=== PATIENT | male | born 1950 | race Caucasian/White ===

== ENCOUNTER 2018-10-16 06:49 | Inpatient (IN) ==
[2018-10-16] MEDS ORDERED: NS 1,000 ML IV ONE (07:24)
[2018-10-16] MEDS ORDERED: TYLENOL PO ONE (07:24)
[2018-10-16] MEDS ORDERED: ZOSYN 3.375 GM in NS 50 ML IV ONE (07:25)
[2018-10-16] MEDS ORDERED: ZOFRAN IV ONE (07:25)
[2018-10-16] MEDS ORDERED: VANCOMYCIN 1 GM/NS 1 GM/250 ML IVPB IV ONE (07:25)
[2018-10-16] MEDS ORDERED: PEPCID IV ONE (07:26)
[2018-10-16] MEDS ORDERED: SODIUM CHLORIDE 0.9% INJ ONE (07:26)
[2018-10-16 07:54] LABS: HEMATOCRIT 36.8 % (42.0-52.0); HEMOGLOBIN 12.1 g/dL (14.0-18.0); LYMPH# 0.27 X1000 (1.2-3.4); LYMPH% 5.8 % (20.5-51.1); MCH 28.7 PG (27-31); MCHC 32.9 g/dL (33-37); MCV 87.4 FL (81-99); MONO% 8.6 % (1.7-9.3); NEUT# 3.96 X1000 (1.4-6.5); NEUT% 85.6 % (42.2-75.2); PLT 109 X1000 (130-400); RBC 4.21 XMIL (4.7-6.1); RDW 14.2 % (11.5-14.5); WBC 4.63 X1000 (4.8-10.8)
[2018-10-16 08:05] LABS: AGAP 14; ALBUMIN 3.3 g/dL (3.5-5.0); ALKALINE PHOSPHATASE 95 U/L (32-122); BUN 20 mg/dL (8-22); CALCIUM 7.8 mg/dL (8.8-10.2); CHLORIDE 103 mmol/L (98-107); COSMO 277; CREATININE 0.9 mg/dL (0.7-1.2); ESTIMATED GFR > 60; GLUCOSE 114 mg/dL (70-104); GOT 37 U/L (10-34); GPT 25 U/L (10-44); LIPASE 9 U/L (13-60); MAGNESIUM 1.5 mg/dL (1.5-2.7); POTASSIUM 3.1 mmol/L (3.5-5.1); SODIUM 137 mmol/L (136-145); TCO2 19 mmol/L (25-35); TOTAL PROTEIN 5.7 g/dL (6.3-8.3)
--- NOTE | 2018-10-16 08:19 | Diag Imaging Result Doc PS360 ---
EXAM: US ABDOMEN-COMPLETE INDICATION: abd pain, diarrhea COMPARISON: None. FINDINGS: The gallbladder appears normal with no stones, wall thickening, or pericholecystic fluid. The common bile duct is normal in diameter. Sonographic Ramachandran's sign was reported to be negative. The liver is grossly unremarkable. Portal venous flow is hepatopetal. The pancreas is obscured by bowel gas. The aorta and IVC are grossly unremarkable. The spleen is unremarkable. There is a 3.7 cm parapelvic simple cyst involving the right kidney. The left kidney is unremarkable. IMPRESSION: Essentially unremarkable abdominal ultrasound. Electronically signed by Felix Flores 10/16/2018 8:16 AM
[2018-10-16 08:20] LABS: BE -1.1 mmoll (-3.0-3.0); BLOOD TYPE ARTERIAL; HCO3-(ACT) 23.9 mmoll (20.0-26.0); METHB 1.2 % (0.0-1.5); O2(CT) 16.1 mL/dL (15.0-23.0); O2HB 92.1 % (95.0-99.0); PCO2(98.6) 32 mmHg (35-45); PO2(98.6) 70 mmHg (60-100); SAMPLE BLOOD; SAO2 95.5 % (95.0-100.0); THB 12.4 g/dL (11.5-17.4); pH(98.6) 7.45 (7.35-7.45)
[2018-10-16 08:36] LABS: MODALITY ROOM AIR
[2018-10-16 08:37] LABS: ALLEN TEST YES
--- NOTE | 2018-10-16 08:54 | EKG Report ---
Test Performed on : 10/16/2018 07:01:48 AM Test Reason : WEAKNESS Blood Pressure : / mmHG Vent. Rate : 088 BPM Atrial Rate : 088 BPM P-R Int : 120 ms QRS Dur : 092 ms QT Int : 348 ms P-R-T Axes : 059 008 063 degrees QTc Int : 421 ms Normal sinus rhythm. Nonspecific ST and T wave abnormality Abnormal ECG No previous ECGs available Unconfirmed Result
[2018-10-16 09:00] LABS: INFLUENZA A NEGATIVE (NEGATIVE); INFLUENZA B NEGATIVE (NEGATIVE)
--- NOTE | 2018-10-16 09:15 | Diag Imaging Result Doc PS360 ---
EXAM: FLAT/UPRIGHT ABD/1 VIEW CHEST HISTORY: abd pain, sepsis, ams TECHNIQUE: Flat and upright with chest, four views COMPARISON: 10/17/2015 FINDINGS: Poor inspiratory effort. No consolidation. No cardiomegaly. No free air beneath the diaphragm. No bowel obstruction. There is air throughout the small bowel and colon. No organomegaly. IMPRESSION: No acute abnormality. Electronically signed by Deven Luu 10/16/2018 9:13 AM
[2018-10-16] MEDS ORDERED: CALCIUM CHLORIDE 1 GM in NS 100 ML IV ONE (09:29)
--- NOTE | 2018-10-16 09:40 | PROVIDER DOCUMENTATION ---
This chart was entered by Giovanna King Scribe, acting as scribe for Tony Palomo MD. HPI-Fever - General Chief Complaint: Weakness Stated Complaint: Weakness Time Seen by Provider: 10/16/18 07:18 Source: patient, EMS Unable to obtain history due to:: altered Allergies/Adverse Reactions: Patient Allergies Allergy/AdvReac Type Severity Reaction Status Date / Time No Known Allergies Allergy Verified 10/15/18 13:51 Home Medications: Home Medication List Medication Instructions Recorded Confirmed Last Taken Type Aspirin [Aspirin EC] 81 mg PO DAILY 10/13/15 10/16/18 10/13/15 History Atorvastatin Calcium 80 mg PO DAILY 10/13/15 10/16/18 10/13/15 History Hydroxychloroquine Sulfate 500 mg PO BID 10/13/15 10/13/15 10/13/15 History Montelukast Sodium 10 mg PO DAILY 10/13/15 10/16/18 10/13/15 History Omeprazole 40 mg PO BID 10/13/15 10/13/15 10/12/15 History Ondansetron Odt [Zofran Odt] 4 mg SL 4XDAY PRN PRN 10/13/15 10/13/15 Unknown History Prednisone 5 mg PO DIRECTED PRN 10/13/15 10/13/15 Unknown History Sucralfate 1 gm PO TID 10/13/15 10/13/15 10/12/15 History Temazepam 30 mg PO EVERY OTHER DAY 10/13/15 10/13/15 10/11/15 History Hydrochlorothiazide 12.5 mg PO DAILY #0 10/17/15 10/13/15 10/12/15 Rx Levofloxacin [Levaquin] 500 mg PO DAILY #10 tablet 10/17/15 Unknown Rx Metronidazole [Flagyl] 500 mg PO TID #30 tablet 10/17/15 Unknown Rx Ondansetron [Zofran Liquid] 2 mg PO Q8H PRN PRN #10 bottle 10/15/18 10/16/18 Unknown Rx Amlodipine [Norvasc] 1 tab PO HS 10/16/18 10/16/18 Unknown History Clonazepam 1 tab PO DIRECTED 10/16/18 10/16/18 Unknown History Donepezil HCl 1 tab PO DAILY 10/16/18 10/16/18 Unknown History Fenoprofen Calcium 1 cap PO DIRECTED 10/16/18 10/16/18 Unknown History Levocetirizine Dihydrochloride 1 tab PO HS 10/16/18 10/16/18 Unknown History Lisinopril 40 mg PO DAILY 10/16/18 10/16/18 Unknown History Tamsulosin HCl 1 cap PO HS 10/16/18 10/16/18 Unknown History Trazodone [Desyrel] 1 tab PO DIRECTED 10/16/18 10/16/18 Unknown History - History of Present Illness-Fever Nature of Presenting Problem: 67 yom presents to the ed with c/o weakness, fever, chills and ams. pt was seen recently for n/v and came in by ems this morning. pt is a/o x2 on exam ad ill appearing Fever Severity/Quality: reports: greater than 102 F (102.7) Onset/Duration: reports: this morning Timing: reports: still present Severity: reports: moderate Context: reports: confusion Fever Therapy OTOLARYNGOLOGY SURGEON: Initiated Tylenol Cognitive Baseline: other (pt has hx of dementia) Modifying Factors: improves with: nothing Associated Symptoms: reports: fever/chills, loss of appetite, malaise, nausea, weakness, other (confusion). denies: back/neck pain, chest pain, diarrhea, headaches, vomiting Similar Symptoms Previously?: Yes Recently seen or treated by another doctor?: Yes (was seen in ed yesterday for n /v) - Glascow Coma Score Best Eye Response (Deweese): (3) open to voice Best Verbal Response (Deweese): (4) confused conversation Best Motor Response (Penny): (6) obeys commands Deweese Total: 13 Review of Systems - Adult - REVIEW OF SYSTEMS - ADULT ROS:: limited per condition Constitutional: reports: see HPI, chills, fever Eyes: denies: blurred vision, double vision Ears, Nose, Mouth & Throat: reports: no symptoms reported Cardiovascular: denies: chest pain, palpitations Respiratory: denies: cough, shortness of breath, wheezing Gastrointestinal: reports: see HPI, abdominal pain, nausea. denies: diarrhea, vomiting Genitourinary: reports: no symptoms reported Musculoskeletal: reports: see HPI, muscle weakness. denies: back pain, neck pain Integumentary: reports: no symptoms reported Neurological: reports: see HPI, other ( confusion). denies: ataxia, dizziness/ vertigo, headache/migraines, slurred speech Psychiatric: reports: no symptoms reported Endocrine: reports: no symptoms reported Hematologic/Lymphatic: reports: no symptoms reported Allergic/Immunologic: reports: no symptoms reported All Other Systems: Reviewed and Negative Past History - Adult - PAST MEDICAL HISTORY-ADULT Review of Records: reports: Old Records Reviewed, Nursing Assessment Review, Medications Reviewed, Social history reviewed & non-contributory. Major Childhood Illnesses: reports: denies history Cardiovascular: reports: HTN, hyperlipidemia Respiratory: reports: COPD Gastrointestinal: reports: denies history Genitourinary: reports: denies history Musculoskeletal: reports: denies history Neurological: reports: dementia Psychiatric: reports: denies history Endocrine/Immune: reports: denies history Other Conditions: reports: denies history - PRIOR SURGERIES/PROCEDURES Surgical/Procedure History: reports: tonsillectomy - IMMUNIZATION STATUS Childhood Immunizations: See Nurse Assessment Flu Vaccine: See Nurse Assessment - FAMILY HISTORY Family History: reviewed, not pertinent - SOCIAL HISTORY Smoking: quit greater than 1 year Substance Use: denies Living Situation: family Physical Exam-General - PHYSICAL EXAM-ADULT Initial Vital Signs Reviewed: Yes - CONSTITUTIONAL General Appearance: alert, mild distress. negative: appears well - EYES Eyes: PERRL/EOMI, pink conjunctivae - HEAD, EARS, NOSE, MOUTH & THROAT HENMT: normocephalic/atraumatic, moist mucous membranes, normal ENT inspection - NECK Neck: full range of motion, normal inspection - RESPIRATORY Respiratory: chest non-tender, decreased breath sounds. negative: crackles, rales, rhonchi - CARDIOVASCULAR Cardiovascular: normal peripheral pulses, tachycardia (102) - GASTROINTESTINAL (ABDOMEN) Abdominal Exam: normal bowel sounds, soft, tenderness (mild genralized with palpation) - LYMPHATIC Lymphatic: no adenopathy - MUSCULOSKELETAL Back Exam: normal inspection Extremity: no calf tenderness, normal capillary refill, pelvis stable - SKIN Integumentary: normal color, normal turgor, warm/dry - NEUROLOGIC Neurologic: grossly normal. negative: facial droop, focal weakness, motor weakness, sensory deficit - PSYCHIATRIC Psych/Mental Status: other (pt has dementia and is a/o x2 on exam) Progress - PLAN OF CARE/RESULTS Progress/Plan/Lab Results: Vital Signs - 8 hr 10/16/18 06:56 10/16/18 07:16 10/16/18 09:00 Temperature 102.7 F H 102.7 F H Pulse Rate 99 H 88 76 Respiratory Rate 26 H 20 18 Blood Pressure 159/75 102/53 O2 Sat by Pulse Oximetry 93 L 93 L 94 L 10/16/18 09:30 Temperature 102.4 F H Pulse Rate 76 Respiratory Rate 23 Blood Pressure 104/55 O2 Sat by Pulse Oximetry 94 L Laboratory Results - last 24 hr 10/16/18 10/16/18 10/16/18 07:20 07:20 07:20 WBC 4.63 L RBC 4.21 L Hgb 12.1 L Hct 36.8 L MCV 87.4 MCH 28.7 MCHC 32.9 L RDW Std Deviation 14.2 Plt Count 109 L MPV 13.0 H Immature Gran % (Auto) 0.0 Neut % (Auto) 85.6 H Lymph % (Auto) 5.8 L Amelia % (Auto) 8.6 Eos % (Auto) 0.0 Baso % (Auto) 0.0 Immature Gran # (Auto) 0.00 Neut # (Auto) 3.96 Lymph # (Auto) 0.27 L Amelia # (Auto) 0.40 Eos # (Auto) 0.00 Baso # (Auto) 0.00 Specimen Type Sample Site pH pCO2 pO2 HCO3 Base Excess Oxyhemoglobin ABG O2 Sat (Calculated) ABG O2 Saturation ABG Carboxyhemoglobin ABG Methemoglobin Jamir Test A-a O2 Difference Total Hemoglobin Lactate Blood Gas Modality FiO2 % Sodium 137 Potassium 3.1 L Chloride 103 Carbon Dioxide 19 L Anion Gap 14 BUN 20 Creatinine 0.9 Estimated GFR/1.73 m2 > 60 BUN/Creatinine Ratio 22 Glucose 114 H Calculated Osmolality 277 Calcium 7.8 L Magnesium 1.5 Total Bilirubin 1.20 H AST 37 H ALT 25 Alkaline Phosphatase 95 Troponin T Total Protein 5.7 L Albumin 3.3 L Globulin 2.0 Albumin/Globulin Ratio 1.0 Lipase 9 L Plasma Lactate TSH 0.09 L Influenza A (Rapid) Influenza B (Rapid) 10/16/18 10/16/18 10/16/18 07:20 07:20 07:54 WBC RBC Hgb Hct MCV MCH MCHC RDW Std Deviation Plt Count MPV Immature Gran % (Auto) Neut % (Auto) Lymph % (Auto) Amelia % (Auto) Eos % (Auto) Baso % (Auto) Immature Gran # (Auto) Neut # (Auto) Lymph # (Auto) Amelia # (Auto) Eos # (Auto) Baso # (Auto) Specimen Type ARTERIAL Sample Site R RADIAL pH 7.45 pCO2 32 L pO2 70 HCO3 23.9 Base Excess -1.1 Oxyhemoglobin 92.1 L ABG O2 Sat (Calculated) 16.1 ABG O2 Saturation 95.5 ABG Carboxyhemoglobin 2.30 ABG Methemoglobin 1.2 Jamir Test YES A-a O2 Difference 40.0 Total Hemoglobin 12.4 Lactate 0.90 Blood Gas Modality ROOM AIR FiO2 % 21.0 Sodium Potassium Chloride Carbon Dioxide Anion Gap BUN Creatinine Estimated GFR/1.73 m2 BUN/Creatinine Ratio Glucose Calculated Osmolality Calcium Magnesium Total Bilirubin AST ALT Alkaline Phosphatase Troponin T < 0.010 Total Protein Albumin Globulin Albumin/Globulin Ratio Lipase Plasma Lactate 1.1 TSH Influenza A (Rapid) Influenza B (Rapid) 10/16/18 08:10 WBC RBC Hgb Hct MCV MCH MCHC RDW Std Deviation Plt Count MPV Immature Gran % (Auto) Neut % (Auto) Lymph % (Auto) Amelia % (Auto) Eos % (Auto) Baso % (Auto) Immature Gran # (Auto) Neut # (Auto) Lymph # (Auto) Amelia # (Auto) Eos # (Auto) Baso # (Auto) Specimen Type Sample Site pH pCO2 pO2 HCO3 Base Excess Oxyhemoglobin ABG O2 Sat (Calculated) ABG O2 Saturation ABG Carboxyhemoglobin ABG Methemoglobin Jamir Test A-a O2 Difference Total Hemoglobin Lactate Blood Gas Modality FiO2 % Sodium Potassium Chloride Carbon Dioxide Anion Gap BUN Creatinine Estimated GFR/1.73 m2 BUN/Creatinine Ratio Glucose Calculated Osmolality Calcium Magnesium Total Bilirubin AST ALT Alkaline Phosphatase Troponin T Total Protein Albumin Globulin Albumin/Globulin Ratio Lipase Plasma Lactate TSH Influenza A (Rapid) NEGATIVE Influenza B (Rapid) NEGATIVE Orders Category Date Time Status Nursing- Obtain EKG once Care 10/16/18 07:21 Active Saline Loc NOW Care 10/16/18 07:21 Active FLAT/UPRIGHT ABD/1 VIEW CHEST [RAD] Stat Exams 10/16/18 07:27 Completed US ABDOMEN-COMPLETE [US] Stat Exams 10/16/18 07:25 Completed ABG [RESP] Routine Lab 10/16/18 07:54 Completed AMMONIA [CHEM] Stat Lab 10/16/18 07:43 Ordered BLOOD CULTURE [BLDCUL] Stat Lab 10/16/18 07:43 Ordered C DIFF TOXIN [STOOL] Stat Lab 10/16/18 07:22 Uncollected CBC WITH ELECTRONIC DIFF [HEME] Stat Lab 10/16/18 07:20 Completed COMPREHENSIVE METABOLIC PANEL [CHEM] Stat Lab 10/16/18 07:20 Completed FREE T3 [HH] Stat Lab 10/16/18 09:28 Uncollected FREE T4 Stat Lab 10/16/18 09:[address] Stat Lab 10/16/18 08:10 Completed LACTATE, PLASMA [CHEM] Stat Lab 10/16/18 07:20 Completed LIPASE [CHEM] Stat Lab 10/16/18 07:20 Completed MAGNESIUM [CHEM] Stat Lab 10/16/18 07:20 Completed OCCULT BLOOD SCREEN STOOL PL Stat Lab 10/16/18 07:22 Ordered TOTAL T3 [HH] Stat Lab 10/16/18 09:28 Ordered TROPONIN T Stat Lab 10/16/18 07:20 Completed TSH Stat Lab 10/16/18 07:[address] W/POSS RFLX CULT [URINALYSIS] Stat Lab 10/16/18 07:22 Uncollected URINE DRUG SCREEN PL Stat Lab 10/16/18 07:23 Uncollected 0.9% Sodium Chloride Inj [Ns] 1,000 ml Med 10/16/18 07:24 Discontinued IV 999 mls/hr Acetaminophen [Tylenol] Med 10/16/18 07:24 Discontinued 1,000 mg PO NOW ONE Calcium Chloride 1 gm Med 10/16/18 09:29 Active 0.9% Sodium Chloride Inj [Ns] 100 ml IV NOW Famotidine [Pepcid] Med 10/16/18 07:26 Discontinued 20 mg IV NOW ONE Ondansetron [Zofran] Med 10/16/18 07:25 Discontinued 4 mg IV NOW ONE Piperacillin/Tazobactam [Zosyn] 3.375 gm Med 10/16/18 07:25 Discontinued 0.9% Sodium Chloride Inj [Ns] 50 ml IV NOW Potassium Chloride 20 Meq/Swi Med 10/16/18 10:00 Active 20 meq in 100 ml IV Q4H Sodium Chloride 0.9% Med 10/16/18 07:26 Discontinued 5 - 10 ml INJ NOW ONE Vancomycin 1 gm/Ns Med 10/16/18 07:25 Discontinued 1 gm in 250 ml IV NOW EKG [EKG] Stat Ther 10/16/18 07:21 Draft Result Diagrams: 10/16/18 07:20 10/16/18 07:20 - REASSESSMENT Reassessment #1 Time Reassessed: 09:14 (family at bedside ) Status: unchanged Reassessment #2 Time Reassessed: 09:37 (patient may have sepsis, but is not severe sepsis.) Status: improving Reassessment Comment: Given IVF bolus, IV vanc/zosyn in case of sepsis - EKG 1 Time of EKG reading by physician:: 07:01 EKG Read and Signed by:: Tony Palomo EKG Interpretation (*Must complete 3 of following elements*): Abnormal Rate: 88 Rhythm: nsr [place]: normal QRS: normal [place] Interval: normal Comments: artifact present/nonspecific ST and T wave abnormality - XRAY 1 XRAY: Bilateral XRAY Study: Abdomen (EXAM: FLAT/UPRIGHT ABD/1 VIEW CHEST HISTORY: abd pain, sepsis, ams TECHNIQUE: Flat and upright with chest, four views COMPARISON: 10/17/2015 FINDINGS: Poor inspiratory effort. No consolidation. No cardiomegaly. No free air beneath the diaphragm. No bowel obstruction. There is air throughout the small bowel and colon. No organomegaly. IMPRESSION: No acute abnormality. Electronically signed by Deven Luu 10/16/2018 9:13 AM 10/16/18 0913 Interpreting Physician: Deven Luu MD Dictated Date/ Time: 10/16/1812 cc: Tony Palomo MD; None,PCP) - ULTRASOUND (By Radiology) 1 US Study: Abdomen (EXAM: US ABDOMEN-COMPLETE INDICATION: abd pain, diarrhea COMPARISON: None. FINDINGS: The gallbladder appears normal with no stones, wall thickening, or pericholecystic fluid. The common bile duct is normal in diameter. Sonographic Ramachandran's sign was reported to be negative. The liver is grossly unremarkable. Portal venous flow is hepatopetal. The pancreas is obscured by bowel gas. The aorta and IVC are grossly unremarkable. The spleen is unremarkable. There is a 3.7 cm parapelvic simple cyst involving the right kidney. The left kidney is unremarkable. IMPRESSION: Essentially unremarkable abdominal ultrasound. Electronically signed by Felix Flores 2018 8:16 AM 10/16/18 0816 Interpreting Physician: Felix Flores MD Dictated Date/Time: 10/16/18 0814 cc: Tony Palomo MD; None,PCP) - CONSULTS/PCP/HOSPITALIST Notification #1 *Consult/PCP/Hospitalist*: Todd Time Discussed: 09:37 Consult Disposition: Will see in ED, Admit Procedures - ADDITIONAL PROCEDURES Additional Procedure: OTHER (ABG Interpretation: ph 7/45, PCO2 32, PO2 70, Bicarb 23.2, BE -1.1. Normal pH with low CO2, likely a result of hyperventilation.) Departure - Departure Date of Disposition Decision: 10/16/18 Time of Disposition Decision: 09:38 DIAGNOSIS: Hyperthyroidism, Hypocalcemia syndrome, Hypokalemia, Pancytopenia, Nausea vomiting and diarrhea Altered mental status, unspecified Qualifiers: Altered mental status type: disorientation Qualified Code(s): R41.0 - Disorientation, unspecified Sepsis Qualifiers: Sepsis type: sepsis due to unspecified organism Qualified Code(s): A41.9 - Sepsis, unspecified organism Disposition: ADMITTED INPATIENT 09 Certified Medical Emergency: Emergent Condition: Fair Referrals and Follow-Ups: None,PCP [Primary Care Provider] - - Critical Care Note This patient required my direct & personal management of CC.: Yes Total Time (mins): 40 Critical Care Statement: This patient required my direct personal management to treat or rule out processes, the absence of which, could potentiallly result in sudden, clinically significant life or limb threatening deterioration. Attestation - Physician/ PATO Attestation Patient care was provided by Advanced Practice Provider:: No The physician spent face to face time with patient:: Yes Advanced Practice Provider documentation review:: Supervising physician onsite and consulted in the evaluation and care of this patient. The physician did have a face to face encounter with the patient. This chart was documented by the indicated scribe, (Giovanna King Scribe) and accurately reflects the services I performed and decisions made by me, Tony Palomo MD, as attested by the provider's signature.
[2018-10-16 10:55] LABS: BILIRUBIN URINE NEGATIVE (NEGATIVE); BLOOD URINE 4+ (NEGATIVE); CLARITY CLEAR (CLEAR); COLOR YELLOW; GLUCOSE URINE NEGATIVE (NEGATIVE); KETONE URINE 1+(Small) mg/dL (NEGATIVE); LEUKOCYTES URINE NEGATIVE (NEGATIVE); NITRITE URINE NEGATIVE (NEGATIVE); PH URINE 6.5; PROTEIN URINE 1+(30 mg/dL) mg/dL (NEGATIVE); SP GRAVITY URINE 1.015; UROBILINOGEN URINE NORMAL
[2018-10-16 11:00] LABS: URINE EPITHELIAL CELLS <10 /HPF (<10); URINE SOURCE CATH
[2018-10-16 11:10] LABS: UR AMPHETAMINES QUAL NONE DETECTED (NONE DETECT); UR BARBITUATES QUAL NONE DETECTED (NONE DETECT); UR BENZODIAZEPIN QUAL NONE DETECTED (NONE DETECT); UR CANNABINOIDS QUAL NONE DETECTED (NONE DETECT); UR COCAINE QUAL NONE DETECTED (NONE DETECT); UR METHADONE QUAL NONE DETECTED (NONE DETECT); UR METHAMPHETAMINE QUAL NONE DETECTED (NONE DETECT); UR OPIATES QUAL NONE DETECTED (NONE DETECT); UR OXYCODONE QUAL NONE DETECTED (NONE DETECT); UR PCP QUAL NONE DETECTED (NONE DETECT); UR PROPOXYPHENE QUAL NONE DETECTED (NONE DETECT); UR TCA QUAL NONE DETECTED (NONE DETECT)
[2018-10-16] MEDS: POTASSIUM CHLORIDE 20 MEQ/SWI 20 MEQ/100 ML IVPB IV SCH ×2 (11:12→17:51)
[2018-10-16] MEDS ORDERED: MOTRIN PO PRN (14:14)
[2018-10-16] MEDS ORDERED: TYLENOL PO PRN (14:34)
[2018-10-16] MEDS: CARAFATE PO SCH ×2 (18:01→20:37)
[2018-10-16] MEDS: PREDNISONE PO SCH (18:01)
[2018-10-16 18:45] LABS: OCCULT BLOOD 1 POSITIVE (NEGATIVE)
[2018-10-16] MEDS: PROTONIX IV SCH (20:37)
--- NOTE | 2018-10-17 00:20 | HISTORY AND PHYSICAL ---
CHIEF COMPLAINT: Weakness, fever, chills. HISTORY OF PRESENT ILLNESS: This is a 67-year-old gentleman with a history of Still's disease, hypertension, hyperlipidemia, as well as Lewy body dementia. He presents to the emergency room with his and son complaining of a fever of 102.7, inability to walk, increased confusion. The patient was evaluated at [facility] 24 hours prior with a workup for nausea, vomiting, and diarrhea. He was discharged with instructions to take Zofran for nausea, ibuprofen every 6 hours for the aching and cramping, and Imodium for diarrhea. Today, the family noticed that he was much weaker. He was complaining of chills and he was more altered than normal. Therefore, prompting their return to the ER. He does not complain of any specific pain other than saying, "I just feel bad all over." But when questioned, he stated that his throat hurt and it may have been hurting for a few days. The states that usually he stays right next to her following her from room to room, but in the last 5 to 7 days he has been very standoffish with all of his family members. Abdominal x-ray revealed no acute abnormality. Ultrasound of the abdomen revealed an essentially unremarkable abdominal ultrasound. He is being admitted for further evaluation and treatment. PAST MEDICAL HISTORY: Hypertension, hyperlipidemia, and Still's disease as well as Lewy body dementia. PAST SURGICAL HISTORY: Tonsillectomy. SOCIAL HISTORY: No alcohol, tobacco, or illicit drug use. He does live with his . He has a son that is very active in his care. ALLERGIES: Thorazine and Haldol that are not to be taken secondary to his Still's disease. HOME MEDICATIONS: A list will be obtained by the nursing staff and will be restarted as is appropriate. REVIEW OF SYSTEMS: Really unable to obtain from the patient due to his dementia, but the pertinent positives stated from the family are listed in the HPI. PHYSICAL EXAMINATION: GENERAL: This is a 67-year-old gentleman who is lying on the stretcher in the emergency room in no distress. VITAL SIGNS: Blood pressure is 104/55 with a heart rate of 76, respirations 20, temperature is 102.4 degrees with room air saturations of 94%. EYES: Pupils are equal, round, react to light. EOMs are intact. Sclerae are anicteric. HENT: Head is normocephalic, atraumatic. Mucous membranes are moist. NECK: Supple with trachea midline. CARDIOVASCULAR: Regular rate and rhythm. S1 and S2 are appreciated. He has no lower extremity edema. PULMONARY: Breath sounds are clear with no increased work of breathing noted. GASTROINTESTINAL: Abdomen is soft, nontender, nondistended with bowel sounds in all 4 quadrants. SKIN: Warm and dry. He has no rashes nor lesions. NEUROLOGIC: He is alert. He knows his and his son. LABS: WBC is 4.6 with a hemoglobin of 12.1, hematocrit 36.8, platelets of 109,000. Sodium is 137, potassium 3.1, BUN 20, creatinine 0.9 with a glucose of 114, calcium is 7.8, total bilirubin is 1.2 with AST of 37. CRP is 141.7 and TSH is 0.09. Stool for occult blood is positive. Urine drug screen reveals none detected. Blood alcohol none detected. Influenza A/B and strep are negative. Abdominal x-ray and abdominal ultrasound are essentially negative. ASSESSMENT AND PLAN: 1. Nausea, vomiting, and diarrhea. 2. Still's disease. The patient's labs for Still's disease have been obtained and are as stated above. The patient has no salmon-colored rash nor does he have any specific joint aches or pains. We will check a triglyceride and we will call Dr. Vela for his advice. 3. Hypocalcemia. This was repleted in the emergency room. We will trend labs. 4. Hypokalemia. This was repleted in the emergency room. We will trend labs. 5. Pancytopenia, aware. 6. Hyperthyroidism. We will get a T3 and a total and T4. 7. Hypertension. We will identify his home medications and continue these as appropriate. 8. Hyperlipidemia, aware. 9. Guaiac-positive stool. The and son state that they have seen no black or tarry nor red stools. We will monitor his hemoglobin and hematocrit. Give Protonix IV b.i.d. as well as Carafate. Further treatments pending hospital course. Dictated by LUISA Lr for Junior Brooks MD This chart was documented by, LUISA Lr and accurately reflects the services performed, treatment plan and medical decisions as attested by the providers signature Junior Brooks MD. cc: LUISA Lr MD
--- NOTE | 2018-10-17 00:21 | HISTORY AND PHYSICAL ---
ADDENDUM: I did speak with Dr. Vela. We reviewed the patient's labs and symptoms. In light of his pancytopenia mildly as well as his elevated CRP, fever and symptoms, he recommended that we start prednisone 30 mg daily and continue this even after discharge. We did discuss his TSH. He recommends that we complete the thyroid panel and then he will follow this up on an outpatient basis. I have instructed the that they are to call him Friday for an appointment. Dictated by LUISA Lr for Junior Brooks MD This chart was documented by, LUISA Lr and accurately reflects the services performed, treatment plan and medical decisions as attested by the providers signature Junior Brooks MD. cc: LUISA Lr MD
[2018-10-17] MEDS ORDERED: HALDOL IV ONE (02:22)
--- NOTE | 2018-10-17 03:05 | HISTORY AND PHYSICAL ---
ADDENDUM: Patient seen and examined by myself. Full note dictated and discussed with nurse practitioner. Patient has a known history of Lewy body dementia as well as Still's disease. Presented the hospital with fever of 102 and altered mental status. We will admit to the hospital, place him on antibiotics, steroids, and continue his home medications, follow cultures. cc: Junior Brooks MD
[2018-10-17] MEDS: BENADRYL IV PRN ×3 (03:35→18:13)
[2018-10-17 05:52] LABS: HEMATOCRIT 37.7 % (42.0-52.0); HEMOGLOBIN 12.2 g/dL (14.0-18.0); LYMPH# 0.33 X1000 (1.2-3.4); LYMPH% 8.7 % (20.5-51.1); MCH 28.1 PG (27-31); MCHC 32.4 g/dL (33-37); MCV 86.9 FL (81-99); MONO# 0.28 X1000 (0.11-0.59); MONO% 7.4 % (1.7-9.3); MPV 11.8 FL (7.4-10.4); NEUT# 3.18 X1000 (1.4-6.5); NEUT% 83.9 % (42.2-75.2); PLT 102 X1000 (130-400); RBC 4.34 XMIL (4.7-6.1); RDW 13.6 % (11.5-14.5); WBC 3.79 X1000 (4.8-10.8)
[2018-10-17 06:28] LABS: AGAP 11; ALBUMIN 3.2 g/dL (3.5-5.0); ALKALINE PHOSPHATASE 80 U/L (32-122); BUN 16 mg/dL (8-22); CALCIUM 8.4 mg/dL (8.8-10.2); CHLORIDE 106 mmol/L (98-107); COSMO 280; CREATININE 0.8 mg/dL (0.7-1.2); ESTIMATED GFR > 60; GLUCOSE 124 mg/dL (70-104); GOT 60 U/L (10-34); GPT 36 U/L (10-44); POTASSIUM 3.6 mmol/L (3.5-5.1); SODIUM 139 mmol/L (136-145); TCO2 22 mmol/L (25-35); TOTAL PROTEIN 6.1 g/dL (6.3-8.3)
[2018-10-17] MEDS: CARAFATE PO SCH ×4 (08:07→21:06)
[2018-10-17] MEDS: PREDNISONE PO SCH (08:07)
[2018-10-17] MEDS: PROTONIX IV SCH ×3 (08:07→19:33)
[2018-10-17] MEDS: SODIUM CHLORIDE 0.9% INJ SCH ×2 (08:07→18:13)
[2018-10-17] MEDS: ATIVAN IV PRN (22:04)
--- NOTE | 2018-10-17 23:40 | PROGRESS NOTE ---
DATE: 10/17/2018 SUBJECTIVE: Patient notes that he is feeling a little bit better. His notes that he was very confused, disoriented and somewhat combative last night although that is improving today. PHYSICAL EXAMINATION: Vital Signs: T-max 102.7 degrees approximately 18 hours ago, T current 98.5 degrees, pulse 60, respiratory 20, BP 138/95. General: Patient is awake, currently in no respiratory distress. He is calm, pleasant. HEENT: Normocephalic. Neck: Supple. Cardiovascular: Regular rate. Chest: Clear. Abdomen: Soft. Extremities: Moves all extremities. ASSESSMENT: 1. Still's disease, seems to be improving. His C-reactive protein is declining. 2. Nausea, vomiting, diarrhea, improved. 3. Hypocalcemia. 4. Hypokalemia. 5. Pancytopenia. 6. Hypothyroidism. We will continue to follow. His TSH is quite low, but his free T4 is currently normal. cc: Junior rBooks MD
[2018-10-18 07:23] LABS: HEMATOCRIT 34.1 % (42.0-52.0); HEMOGLOBIN 11.2 g/dL (14.0-18.0); MCH 27.7 PG (27-31); MCHC 32.8 g/dL (33-37); MCV 84.4 FL (81-99); MPV 12.9 FL (7.4-10.4); RBC 4.04 XMIL (4.7-6.1); WBC 5.26 X1000 (4.8-10.8)
[2018-10-18 07:33] LABS: AGAP 10; ALBUMIN 2.9 g/dL (3.5-5.0); ALKALINE PHOSPHATASE 65 U/L (32-122); BUN 17 mg/dL (8-22); CALCIUM 8.2 mg/dL (8.8-10.2); CHLORIDE 103 mmol/L (98-107); COSMO 279; CREATININE 0.7 mg/dL (0.7-1.2); ESTIMATED GFR > 60; GLUCOSE 105 mg/dL (70-104); GOT 59 U/L (10-34); GPT 43 U/L (10-44); POTASSIUM 3.2 mmol/L (3.5-5.1); SODIUM 139 mmol/L (136-145); TCO2 26 mmol/L (25-35); TOTAL PROTEIN 5.7 g/dL (6.3-8.3)
[2018-10-18] MEDS: PREDNISONE PO SCH (08:59)
[2018-10-18] MEDS: CARAFATE PO SCH ×4 (08:59→20:03)
[2018-10-18] MEDS: SODIUM CHLORIDE 0.9% INJ SCH ×3 (09:00→18:51)
[2018-10-18] MEDS: PROTONIX IV SCH ×3 (09:00→18:51)
[2018-10-18] MEDS ORDERED: KLOR-CON PO ONE (09:10)
[2018-10-18] MEDS: ATIVAN IV PRN ×2 (12:29→19:46)
--- NOTE | 2018-10-18 16:56 | PROGRESS NOTE ---
DATE: 10/18/2018 SUBJECTIVE: Patient is much more calm this morning, did have an eventful night although that was easily resolved with Ativan. His notes that he has improved. She denies any current complaints other than that he is still very weak and fatigued. PHYSICAL: Temperature 97.8 degrees, pulse 59, respiratory 18, BP 152/80.General: Patient is awake, alert, he is in no distress. HEENT: Normocephalic. Neck: Supple. CV: Regular rate. Chest: Clear. Abdomen: Soft. Extremities: Moves all extremities although generalized weakness. ASSESSMENT: 1. Still's disease. 2. Lewy body dementia. 3. Hypocalcemia. 4. Hypokalemia. 5. Hyperthyroidism, will continue to follow. 6. Hypertension. PLAN: Will continue to follow. Most likely he is going to need rehab as he is still very weak and fatigued, his Still's disease seems to be improving, will continue oral steroids, will hold off on antibiotics as he has been afebrile for the past 36 hours and the fever certainly could be from the Still's disease. We have discussed this with his associate doctor Dr. Vela and will continue to follow. cc: Junior Brooks MD
--- NOTE | 2018-10-19 03:53 | DISCHARGE SUMMARY ---
ADMISSION DATE: 10/16/2018 DISCHARGE DATE: 10/18/2018 DIAGNOSES: 1. Still's disease. 2. Nausea, vomiting, diarrhea, improved. 3. Hypocalcemia. 4. Hypokalemia. 5. Pancytopenia. 6. Abnormal thyroid test with a TSH 0.09, free T4 of 1.2, free T3 1.8 and a total T3 0.6. DIAGNOSTICS: 1. Abdominal ultrasound revealed essentially unremarkable abdominal ultrasound. 2. Abdominal x-ray revealed no acute abnormality. MICROBIOLOGY: 1. Blood cultures x2 revealed no growth after 48 hours. 2. Throat culture revealed no strep isolated. 3. Flu A and B were both negative. HOSPITAL COURSE: Mr. Cardoso presented to the emergency room complaining of weakness, fever and chills. He did have a fever of 102.7 on arrival to the emergency room. Abdominal scans were negative. As the patient has Still's disease, we did check triglycerides as well as CRP. Although the patient did not have a salmon-colored rash, he was pancytopenic with elevated CRP. I did call Dr. Vela, his physician. We discussed the test and labs and he recommended that the patient be treated for Still's disease giving him prednisone 30 mg daily with no other treatment. We trended serial labs as well as CRP. CRP did decline and his other labs were improving. Of note, he never developed a salmon-colored rash. The patient does have a history of Lewy body dementia and on the 2nd day he did become a little more confused. He is very stoic although the family could notice the confusion. We did remind them that the patient will have confusion with dementia with setting changes. Also, the steroids were added. Today, he has had less confusion. We did trend electrolytes and replete as is appropriate. He has remained afebrile for almost 24 hours and thankfully is ready for discharge. DISCHARGE PHYSICAL EXAMINATION: Cardiovascular: Regular rate and rhythm. S1 and S2 appreciated. He has no lower extremity edema. Peripheral pulses are palpable x4 extremities. Pulmonary: Breath sounds are clear with no increased work of breathing noted. Gastrointestinal: Abdomen is soft, nontender, nondistended with bowel sounds in all 4 quadrants. Skin: Warm and dry. He has no rash or lesions noted. Discharge vital signs: Blood pressure is 152/80 with a heart rate of 59, respirations are 20, temperature is 97.8 degrees axillary with room air saturations 96- 97%. FOLLOWUP: They need to call Dr. Vela' office in the morning to schedule an appointment. DISCHARGE MEDICATIONS: 1. Tamsulosin 0.4 mg at bedtime. 2. Omeprazole 40 mg daily. 3. Lisinopril 40 mg daily. 4. Klonopin 1 mg at bedtime. 5. Donepezil 1 tablet at bedtime. 6. Atorvastatin 80 mg at bedtime. 7. Enteric-coated aspirin 81 mg daily. 8. Norvasc 10 mg daily. 9. Prednisone 30 mg p.o. daily. Further prednisone dosing will be per Dr. Vela. DISPOSITION: He is being discharged home in stable condition with family members. TIME SPENT: This is a greater than 30 minute discharge. Dictated by LUISA Lr for Junior Brooks MD This chart was documented by, LUISA rL and accurately reflects the services performed, treatment plan and medical decisions as attested by the providers signature Junior Brooks MD. cc: LUISA Lr MD Vijayanarayana R. Jampala, MD Micah A. Howard, MD
[2018-10-19] MEDS: PREDNISONE PO SCH (07:59)
[2018-10-19] MEDS: PROTONIX IV SCH (07:59)
[2018-10-19] MEDS: CARAFATE PO SCH ×4 (07:59→22:22)
[2018-10-19] MEDS: SODIUM CHLORIDE 0.9% INJ SCH (07:59)
--- NOTE | 2018-10-19 15:46 | PROGRESS NOTE ---
DATE: 10/19/2018 SUBJECTIVE: The patient has no focal complaints. He is kind of sitting up in bed quietly. OBJECTIVE: Vital Signs: Blood pressure is 140/90, heart rate of 55, respiratory rate 20, temperature 98.1 degrees, 99% on room air. Cardiovascular: Regular rate and rhythm. Pulmonary: Bilateral breath sounds clear to auscultation. Gastrointestinal: Soft, nontender, nondistended. Bowel sounds are positive. LABORATORY DATA: White count is 5, hemoglobin and hematocrit 11 and 34, platelets 120,000. Potassium 3.2, otherwise negative. PROBLEM LIST: 1. Still's disease with exacerbation. He is on a brief course of steroids. There is documentation about talking to Dr. Vela, but we are not sure what his steroid taper will be. Anyway, now we are looking at rehab options for him. 2. Lewy body dementia, appears to be stable. Will continue to follow. 3. Hypokalemia. We will supplement and follow. DISPOSITION: Anticipate discharge soon when rehab bed is available. Will continue to follow. 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 cc: Luis F Anderson MD
[2018-10-19] MEDS: ATIVAN IV PRN (15:48)
[2018-10-19] MEDS ORDERED: PROTONIX PO SCH (21:00)
[2018-10-19] MEDS: FLOMAX PO SCH (22:32)
[2018-10-19] MEDS: LIPITOR PO SCH (22:32)
[2018-10-19] MEDS: ZYRTEC PO SCH (22:33)
[2018-10-19] MEDS: KLONOPIN PO SCH (22:33)
[2018-10-19] MEDS: DESYREL PO SCH (22:35)
[2018-10-20] MEDS: PRILOSEC PO SCH (06:48)
[2018-10-20] MEDS: CARAFATE PO SCH ×4 (06:50→20:44)
[2018-10-20 06:58] LABS: BASO# 0.02 X1000 (0.0-0.2); BASO% 0.4 % (0.0-0.8); EOS# 0.02 X1000 (0.0-0.7); EOS% 0.4 % (0.0-10.0); HEMATOCRIT 33.2 % (42.0-52.0); HEMOGLOBIN 11.2 g/dL (14.0-18.0); IMM GRAN# 0.04 X1000 (0.0-0.04); IMM GRAN% 0.8 % (0.0-0.5); LYMPH# 1.47 X1000 (1.2-3.4); LYMPH% 28.4 % (20.5-51.1); MCH 28.4 PG (27-31); MCHC 33.7 g/dL (33-37); MCV 84.3 FL (81-99); MONO# 0.96 X1000 (0.11-0.59); MONO% 18.5 % (1.7-9.3); MPV 12.4 FL (7.4-10.4); NEUT# 2.67 X1000 (1.4-6.5); NEUT% 51.5 % (42.2-75.2); PLT 155 X1000 (130-400); RBC 3.94 XMIL (4.7-6.1); RDW 12.9 % (11.5-14.5); WBC 5.18 X1000 (4.8-10.8)
[2018-10-20 07:04] LABS: AGAP 9; BUN 19 mg/dL (8-22); CALCIUM 8.3 mg/dL (8.8-10.2); CHLORIDE 103 mmol/L (98-107); COSMO 286; CREATININE 0.7 mg/dL (0.7-1.2); ESTIMATED GFR > 60; GLUCOSE 103 mg/dL (70-104); POTASSIUM 3.1 mmol/L (3.5-5.1); SODIUM 142 mmol/L (136-145); TCO2 30 mmol/L (25-35)
[2018-10-20 07:56] LABS: ANISOCYTOSIS 1+; BANDS 1 % (0-1); LYMPHS 30 % (21-51); MONO 15 % (1-9); SEGS 54 % (42-75)
[2018-10-20] MEDS: PREDNISONE PO SCH (09:56)
[2018-10-20] MEDS: PRINIVIL PO SCH (09:56)
[2018-10-20] MEDS: ASPIRIN EC PO SCH (09:56)
[2018-10-20] MEDS: ARICEPT PO SCH (09:56)
[2018-10-20] MEDS: SINGULAIR PO SCH (09:56)
[2018-10-20] MEDS: NORVASC PO SCH (09:57)
[2018-10-20] MEDS: KLOR-CON PO SCH (17:08)
--- NOTE | 2018-10-20 19:42 | PROGRESS NOTE ---
DATE: 10/20/2018 SUBJECTIVE: Patient is doing okay. The son expressed concern because he is having kind of psychosis issues and they are concerned that may be related to the steroids. Like he is having strong visual hallucinations which he had not had any issues with before. PHYSICAL EXAMINATION: Vital Signs: Blood pressure is 104/55, heart rate 51, respiratory rate 18, temperature 97.7. Cardiovascular: Regular rate and rhythm. Pulmonary: Bilateral breath sounds. Clear to auscultation. Gastrointestinal: Soft, nontender, nondistended. Bowel sounds are positive. LABORATORY DATA: White count 5, hemoglobin and hematocrit 11 and 33, platelets 155,000. Potassium 3.1. Otherwise, negative. PROBLEM LIST: 1. Still's disease with exacerbation. He is on [address] Vela recommended continuing that while he is at the facility. The only concern now is just confusion possibly related to his steroids. I am going to give him a little bit of Zyprexa at night, see if it may help with some of the confusion and we may want to consider a more rapid dropping to see if that may help. 2. Hypokalemia. We will supplement and follow. 3. Generalized weakness, likely related to Still's disease exacerbation. Will continue PT and we are planning on rehab. 4. Disposition: Pending clinical status. Anticipate discharge soon to rehab, hopefully in the next 24 hours. cc: Luis F Anderson MD
[2018-10-20] MEDS: KLONOPIN PO SCH (20:37)
[2018-10-20] MEDS: LIPITOR PO SCH (20:38)
[2018-10-20] MEDS: ZYPREXA ZYDIS PO PRN (20:38)
[2018-10-20] MEDS: DESYREL PO SCH (20:38)
[2018-10-20] MEDS: FLOMAX PO SCH (20:38)
[2018-10-20] MEDS: ZYRTEC PO SCH (20:38)
[2018-10-21] MEDS: CARAFATE PO SCH ×4 (06:55→21:06)
[2018-10-21] MEDS: PRILOSEC PO SCH (06:55)
[2018-10-21 08:03] LABS: AGAP 9; BUN 19 mg/dL (8-22); CALCIUM 8.4 mg/dL (8.8-10.2); CHLORIDE 105 mmol/L (98-107); COSMO 285; CREATININE 0.6 mg/dL (0.7-1.2); ESTIMATED GFR > 60; GLUCOSE 92 mg/dL (70-104); POTASSIUM 3.6 mmol/L (3.5-5.1); SODIUM 142 mmol/L (136-145); TCO2 28 mmol/L (25-35)
[2018-10-21] MEDS: SINGULAIR PO SCH (10:41)
[2018-10-21] MEDS: NORVASC PO SCH (10:41)
[2018-10-21] MEDS: ARICEPT PO SCH (10:41)
[2018-10-21] MEDS: PRINIVIL PO SCH (10:41)
[2018-10-21] MEDS: PREDNISONE PO SCH (10:41)
[2018-10-21] MEDS: KLOR-CON PO SCH (10:41)
[2018-10-21] MEDS: ASPIRIN EC PO SCH (10:41)
--- NOTE | 2018-10-21 13:45 | PROGRESS NOTE ---
DATE: 10/21/2018 SUBJECTIVE: Patient has no major complaints. He is sitting up in bed. I cannot appreciate he has had any confusion issues, but he is apparently doing okay. SUBJECTIVE: No major issues overnight. OBJECTIVE: Blood pressure 125/70, heart rate 53, respiratory rate 21, temperature 97.6 degrees, 100% on room air.Cardiovascular: Regular rate and rhythm. Pulmonary: Bilateral breath sounds. Clear to auscultation. GI: Soft, nontender, nondistended. Bowel sounds are positive. Basic was normal. PROBLEM LIST: 1. Still's disease. He is on 20 of prednisone. We will continue that per Dr. Vela's through rehabilitation and follow closely. 2. Hypokalemia; that is resolved. 3. Weakness. We will continue physical therapy and rehabilitation. 4. Hallucinations may be related to prednisone. We discussed that we would have to continue that for the time being. DISPOSITION: Waiting for rehab swing bed to open up at [facility], and we will continue to follow. cc: Luis F Anderson MD
[2018-10-21] MEDS: LIPITOR PO SCH (21:06)
[2018-10-21] MEDS: KLONOPIN PO SCH (21:07)
[2018-10-21] MEDS: FLOMAX PO SCH (21:07)
[2018-10-21] MEDS: ZYPREXA ZYDIS PO PRN (21:07)
[2018-10-21] MEDS: ZYRTEC PO SCH (21:07)
[2018-10-21] MEDS: DESYREL PO SCH (21:07)
[2018-10-22] MEDS: PRILOSEC PO SCH (06:28)
[2018-10-22] MEDS: CARAFATE PO SCH ×4 (06:30→21:21)
--- NOTE | 2018-10-22 11:07 | PROGRESS NOTE ---
DATE: 10/22/2018 SUBJECTIVE: The patient is lying comfortably in bed. He is complaining only of generalized weakness but no other issues. OBJECTIVE: Vital Signs: Temperature 97.9 degrees, pulse 80, respiratory rate 18, blood pressure 123/62, oxygen saturation 94% on room air. HEENT: Head normocephalic. No trauma. PERRLA. Neck: Supple. No JVD. No masses. Central trachea. Chest: Clear to auscultation. No wheezing. No rales. Abdomen: Soft, nontender, nondistended. No hepatosplenomegaly. Extremities: No edema. No clubbing. No cyanosis. Neurological Examination: The patient is alert and oriented x3. Generalized weakness. Laboratory: Sodium 142, potassium 3.6, chloride 105, bicarbonate 28, BUN 19, creatinine 0.6, glucose 92, calcium 8.4. ASSESSMENT AND PLAN: 1. Still's disease. Continue with prednisone. Dr. Vela is his student development coordinator. We will continue the treatment for now. The plan is to send this patient to rehab. 2. Hypokalemia, resolved. 3. Weakness. We will continue physical therapy and pending rehabilitation. 4. This patient has been having hallucination on and off, likely secondary to the steroids but as per the patient, he did not have any kind of hallucination during the night or today. 5. Disposition. Waiting for a rehab bed. cc: Dio Mcmahon MD
[2018-10-22] MEDS: ARICEPT PO SCH (11:35)
[2018-10-22] MEDS: PRINIVIL PO SCH (11:35)
[2018-10-22] MEDS: PREDNISONE PO SCH (11:36)
[2018-10-22] MEDS: SINGULAIR PO SCH (11:36)
[2018-10-22] MEDS: ASPIRIN EC PO SCH (11:36)
[2018-10-22] MEDS: NORVASC PO SCH (11:37)
[2018-10-22] MEDS: KLOR-CON PO SCH (11:38)
[2018-10-22] MEDS: ZYPREXA ZYDIS PO PRN (17:32)
[2018-10-22] MEDS: KLONOPIN PO SCH (21:21)
[2018-10-22] MEDS: ZYRTEC PO SCH (21:22)
[2018-10-22] MEDS: DESYREL PO SCH (21:22)
[2018-10-22] MEDS: LIPITOR PO SCH (21:22)
[2018-10-22] MEDS: FLOMAX PO SCH (21:23)
[2018-10-23] MEDS: PRILOSEC PO SCH (06:42)
[2018-10-23] MEDS: CARAFATE PO SCH ×2 (06:42→10:59)
--- NOTE | 2018-10-23 09:33 | PROGRESS NOTE ---
DATE: 10/23/2018 SUBJECTIVE: No acute events overnight. OBJECTIVE: Vital Signs: Temperature 97.3 degrees, pulse 58, respiratory rate 18, blood pressure 146/68, oxygen saturation 94 on room air. HEENT: Head normocephalic. No trauma. PERRLA. Neck: Supple. No JVD. No masses. Central trachea. Chest: Clear to auscultation. No wheezing. No rales. Abdomen: Soft, nontender, nondistended. No hepatosplenomegaly. Extremities: No edema. No clubbing. No cyanosis. Neurological: The patient is alert and oriented x3. Generalized weakness. LABORATORY: No lab work done today. ASSESSMENT AND PLAN: 1. Still disease. Continue with prednisone. Dr. Vela is his painter maintenance, and he has been placed on steroids. We will continue with the same treatment for now. It looks like he has been having some hallucinations before due to this treatment, but he denies any hallucination in the past 48 hours. 2. Hypokalemia, resolved. I will get a new BMP in the morning. 3. Weakness. Continue physical therapy. Pending rehab center placement. 4. Disposition: Awaiting for rehab bed. cc: Dio Mcmahon MD
[2018-10-23] MEDS: PREDNISONE PO SCH (10:59)
[2018-10-23] MEDS: SINGULAIR PO SCH (10:59)
[2018-10-23] MEDS: PRINIVIL PO SCH (10:59)
[2018-10-23] MEDS: ARICEPT PO SCH (10:59)
[2018-10-23] MEDS: KLOR-CON PO SCH (10:59)
[2018-10-23] MEDS: ASPIRIN EC PO SCH (11:00)
[2018-10-23] MEDS: NORVASC PO SCH (11:00)
--- NOTE | 2018-10-23 12:36 | DISCHARGE SUMMARY ---
ADMISSION DATE: 10/16/2018 DISCHARGE DATE: 10/23/2018 ADDENDUM REPORT: Please see previous discharge summary for diagnosis, diagnostics, microbiology, hospital course. The reason for delay in the discharge was due to the patient desiring rehab, and we were waiting for a rehab bed. One is available today, so he will be discharged to rehab in stable condition. DISCHARGE MEDICATIONS: The discharge medications I will addend and are as follows: 1. Tylenol 650 mg p.o. every 6 hours p.r.n. 2. Norvasc 10 mg p.o. daily. 3. Aspirin 81 mg p.o. daily. 4. Atorvastatin 80 mg p.o. every night at bedtime. 5. Klonopin 1 mg p.o. every night at bedtime. 6. Donepezil 10 mg p.o. daily. 7. Levocetirizine 5 mg p.o. every night at bedtime. 8. Lisinopril 40 mg p.o. daily. 9. Montelukast sodium 10 mg p.o. daily. 10. Omeprazole 40 mg p.o. daily. 11. Potassium 20 mEq p.o. daily, number 30 with 1 refill. 12. Prednisone 20 mg p.o. daily, number 30 with no refill. 13. Tamsulosin 0.4 mg 1 capsule p.o. every night at bedtime. 14. Desyrel 100 mg p.o. every night at bedtime. FOLLOWUP: Once his rehab is completed, he will follow back up with his primary care physician, and he will also need to follow up with Dr. Vela for his Still disease and call the office for an appointment once his rehab is completed. TIME SPENT ON ADDENDUM: This was a 35 minute addendum discharge summary. Dictated by LUISA Briceno for Dio Mcmahon MD cc: LUISA Briceno MD Dr. Gillespie Vijayanarayana R. Jampala, MD
[2018-10-23 14:36] VITALS: BP 112/55
== END 2018-10-23 17:04 | DRG 546 ==
LOC: P.ED 06:49 → SUATTDRO 06:50 → P.MEDSURG 06:50
PROVIDERS: ATTEND Internal Medicine
CPT/HCPCS: 36415; 74022; 76700; 80048; 80053; 80104; 80301; 80305; 80307; 80320; 81001; 82055; 82140; 82270; 82728; 82805; 83605; 83690; 83735; 84439; 84443; 84478; 84480; 84481; 84484; 85025; 85027; 85651; 86140; 87040; 87081; 87275; 87276; 87430; 87804; 93005; 94761; 96365; 96367; 96375; 97163; 97530; 99285; 99291; A9270; C9113; G0431; G0434; G0477; G0480; G6040; J1200; J2060; J2405; J2543; J3370; J3480; J7030; J7506; J7512; S0028; S0164